=== PATIENT | female | born 1995 | race Hispanic/Latino ===

== ENCOUNTER 2019-03-17 07:55 | Emergency (ER) | payer OTHER ==
[~2019-03-17] VITALS: Ht 154.9 cm; Wt 55.4 kg
[2019-03-17] MEDS ORDERED: PREN1TAB11 PO (08:06)
[2019-03-17] MEDS ORDERED: ACETAMINOPHEN 500 MG TAB PO ONE (09:00)
[2019-03-17 10:45] VITALS: BP 126/66
== END 2019-03-17 10:47 | disposition home or self-care (01) ==
LOC: M ED 07:55 → EDBD 07:55 → M ED 10:47
DX: O99.89 Other specified diseases and conditions complicating pregnancy, childbirth and the puerperium (principal); M62.838 Other muscle spasm; Z3A.01 Less than 8 weeks gestation of pregnancy